=== PATIENT | male | born 1950 | race Caucasian/White ===

== ENCOUNTER → 2016-12-12 | Outpatient (CLI) | payer OTHER | END | disposition home or self-care (01) | LOC: RD 17:43 | DX: M25.511 Pain in right shoulder (principal); M25.561 Pain in right knee ==

== ENCOUNTER 2018-07-15 06:13 | Emergency (ER) | payer OTHER ==
[~2018-07-15] VITALS: Ht 180.3 cm; Wt 68.5 kg
[2018-07-15 07:08] LABS: RED CELL DISTRIBUTION WIDTH 13.9 % (11.5-14.5)
[2018-07-15 07:31] LABS: CALCIUM 10.6 mg/dL (8.5-10.1); CARBON DIOXIDE 28.4 mmol/L (21-32); CREATININE SERUM 1.6 mg/dL (0.7-1.3); POTASSIUM SERUM 4.4 mmol/L (3.5-5.1)
[2018-07-15 07:42] LABS: BILIRUBIN TOTAL 0.54 mg/dL (0.20-1.00); TOTAL PROTEIN, SERUM 7.1 g/dL (6.4-8.2)
[2018-07-15 07:46] LABS: ALBUMIN 2.4 g/dL (3.4-5.0)
[2018-07-15 08:30] LABS: microscopic required? YES; urine erythrocyte 3+ (NEGATIVE)
[2018-07-15] MEDS ORDERED: FLO4 (08:35)
[2018-07-15 08:39] VITALS: BP 125/70
[2018-07-15 09:05] LABS: BAND NEUTROPHIL 2 % (0-10); MONOCYTE 7 % (0-7); PLATELET MORPHOLOGY PLATELETS NORMAL; SEGMENTED NEUTROPHILS 87 % (37-75); rbc morphology (normal/abnorm) NORMAL (NORMAL)
[2018-07-15 09:06] LABS: PLATELET COUNT 544 x10^3mcL (130-400)
== END 2018-07-15 10:09 | disposition home or self-care (01) ==
LOC: ED 06:13
PROVIDERS: Emergency Medicine
DX: N39.0 Urinary tract infection, site not specified (principal); R33.9 Retention of urine, unspecified; R14.0 Abdominal distension (gaseous); I10 Essential (primary) hypertension
CPT/HCPCS: J0696; J1885

== ENCOUNTER 2018-07-18 07:17 | Emergency (ER) | payer OTHER | END 2018-07-18 08:41 | disposition left against medical advice (07) | LOC: ED 07:17 ==

== ENCOUNTER 2018-07-22 15:14 | Emergency (ER) | payer OTHER ==
[~2018-07-22] VITALS: Ht 180.3 cm; Wt 66.0 kg
[~2018-07-22 15:14] MED LIST: FLO4
[2018-07-22 15:21] VITALS: Ht 180.3 cm; Wt 66.0 kg
[2018-07-22 17:42] VITALS: BP 137/75
== END 2018-07-22 17:42 | disposition home or self-care (01) ==
LOC: ED 15:14
DX: R33.9 Retention of urine, unspecified (principal); F17.200 Nicotine dependence, unspecified, uncomplicated; I10 Essential (primary) hypertension; Z60.2 Problems related to living alone
CPT/HCPCS: 99406

== ENCOUNTER 2018-07-27 08:54 | Emergency (ER) | payer OTHER ==
[~2018-07-27] VITALS: Ht 180.3 cm; Wt 68.0 kg
[2018-07-27 09:03] VITALS: Ht 180.3 cm; Wt 68.0 kg
[2018-07-27 11:00] VITALS: BP 145/87
== END 2018-07-27 11:00 | disposition left against medical advice (07) ==
LOC: ED 08:54
DX: N13.30 Unspecified hydronephrosis (principal); C85.90 Non-Hodgkin lymphoma, unspecified, unspecified site; I10 Essential (primary) hypertension; F17.210 Nicotine dependence, cigarettes, uncomplicated
CPT/HCPCS: 99406; J0171; J0610; J1885

== ENCOUNTER 2018-07-31 09:43 | Emergency (ER) | payer OTHER ==
[~2018-07-31] VITALS: Ht 180.3 cm; Wt 70.3 kg
[2018-07-31 10:03] VITALS: Ht 180.3 cm; Wt 70.3 kg
[2018-07-31 13:31] LABS: microscopic required? YES; urine erythrocyte 3+ (NEGATIVE)
[2018-07-31 15:19] LABS: PLATELET COUNT 439 x10^3mcL (130-400); RED CELL DISTRIBUTION WIDTH 14.6 % (11.5-14.5)
[2018-07-31 15:37] LABS: BILIRUBIN TOTAL 0.7 mg/dL (0.20-1.00); CALCIUM 11.4 mg/dL (8.5-10.1); CARBON DIOXIDE 23.6 mmol/L (21-32); POTASSIUM SERUM 4.9 mmol/L (3.5-5.1); TOTAL PROTEIN, SERUM 6.6 g/dL (6.4-8.2)
[2018-07-31 15:41] LABS: BAND NEUTROPHIL 16 % (0-10); BASOPHIL 0 % (0-2); MONOCYTE 1 % (0-7); SEGMENTED NEUTROPHILS 82 % (37-75); rbc morphology (normal/abnorm) ABNORMAL (NORMAL)
[2018-07-31 15:43] LABS: PLATELET MORPHOLOGY PLATELETS INCREASED; tear drop cell (dacryocyte) 1+
[2018-07-31 15:45] LABS: ALBUMIN 2.3 g/dL (3.4-5.0)
[2018-07-31 15:46] LABS: CREATININE SERUM 4.2 mg/dL (0.7-1.3)
[2018-07-31 19:42] VITALS: BP 122/81
== END 2018-07-31 19:35 | disposition short-term general hospital (02) ==
LOC: ED 09:43
PROVIDERS: Emergency Medicine
DX: N39.0 Urinary tract infection, site not specified (principal); R65.10 Systemic inflammatory response syndrome (SIRS) of non-infectious origin without acute organ dysfunction; I10 Essential (primary) hypertension; Z98.890 Other specified postprocedural states
CPT/HCPCS: J0696; J7030